=== PATIENT | female | born 1940 | race Caucasian/White ===

== ENCOUNTER 2017-04-18 18:05 | Observation (INO) | payer MEDICARE, OTHER ==
[2017-04-18 18:36] LABS: #Eosinphils 0.1 thou/uL (0.0-0.7); #Lymphocytes 2.1 thou/uL (1.20-3.40); #Monocytes 1.2 thou/uL (0.11-0.59); #Neutrophils 9.6 thou/uL (1.40-6.50); %Basophils 0.1 % (0.0-1.0); %Eosinophils 0.9 % (0.0-10.0); %Lymphocytes 16.2 % (21.0-51.0); %Monocytes 9.1 % (0.0-10.0); Mean Platelet Volume 9.5 fL (7.4-10.4); Red Blood Cell (RBC) Count 4.15 mill/uL (4.20-5.40); White Blood Cell (WBC) Count 13.1 thou/uL (4.8-10.8)
[2017-04-18 18:58] LABS: ALT (SGPT) 14 U/L (8-55); AST (SGOT) 9 U/L (5-34); Alkaline Phosphatase 56 U/L (40-150); Anion Gap 14 mmol/L (10-20); BUN (Urea Nitrogen) 25 mg/dL (9.8-20.1); Bilirubin, Total 0.5 mg/dL (0.2-1.2); Calc. Creatinine Clearance 0 mL/min (70-130); Calcium 9.5 mg/dL (7.8-10.44); Carbon Dioxide 29 mmol/L (23-31); Chloride 102 mmol/L (98-107); Estimated GFR-MDRD 67; Globulin 2.6 g/dL (2.4-3.5)
[2017-04-18 19:03] LABS: Troponin I 0.022 ng/mL (< 0.028)
[2017-04-18] MEDS ORDERED: Nitroglycerin 2% Ointment 1 INCH/1 GM Packet ONE (20:11)
[2017-04-18] MEDS ORDERED: hydrALAZINE 20 MG/ML VIAL ONE (22:28)
[2017-04-19] MEDS ORDERED: Ondansetron HCl/PF 4 MG/2 ML Vial IVP PRN
[2017-04-19] MEDS ORDERED: Ondansetron ODT 4 MG TAB SL PRN
[2017-04-19] MEDS ORDERED: Ondansetron ODT 4 MG TAB PO PRN (00:04)
[2017-04-19] MEDS ORDERED: HYDROcodone/Acetaminophen 10/325 mg Tablet PO PRN (00:04)
[2017-04-19] MEDS ORDERED: Acetaminophen 325 MG TAB PO PRN (00:04)
[2017-04-19] MEDS ORDERED: hydrALAZINE 20 MG/ML VIAL SLOW IVP PRN ×2 (00:04)
[2017-04-19] MEDS: HYDROcodone/Acetaminophen 5/325 mg Tablet PO PRN ×2 (01:04→08:00)
[2017-04-19] MEDS ORDERED: Carvedilol 6.25 MG TAB PO SCH ×2 (01:15→17:00)
[2017-04-19 01:36] VITALS: BMI 39.6
--- NOTE | 2017-04-19 01:53 | HP ---
DATE OF ADMISSION: 04/18/2017 CHIEF COMPLAINT: Elevated blood pressure. HISTORY OF PRESENT ILLNESS: Ms. Stevens is a 76-year-old white female with a history of hypertension , rheumatoid arthritis on methotrexate and recently on prednisone, obesity, DJD, remote atrial fibri llation, status post cardioversion and diabetes, who presented to the outside Emergency Department f or evaluation of an elevated blood pressure. She initially presented to [facility] after noting a systolic blood pressure today around 233. She pr esented to an outside facility for evaluation. There she was given hydralazine, which brought her b lood pressure down to systolic 140s. She has noted a history over the last several days of increasi ng blood pressures despite taking the regular home medications. She denies any chest pain or shortn ess of breath. She reported some diaphoresis, but she currently denies. No nausea, no vomiting. She has noted that her blood pressure started spiking around 2 days ago initially to a systolic pres sure of 203, increasing up to 233. She was given clonidine by primary care physician sometime ago w ith instructions to take 1-3 tablets 3 times a day as needed for elevated blood pressure. She has h ad 7 of those in the last 24 hours, yet blood pressure was still 233 today. When asked about recent blood pressure medication changes, she takes hydrochlorothiazide and amlodip ine. She was recently switched over to Coreg and losartan. She was on Lasix prior and was taken of f of that. She takes prednisone 5 mg a day which is not normal, she is usually off of that, just on her methotr exate for rheumatoid arthritis. The Physician Business Analyst Project Manager with her culinary arts teacher started her on that recently on cycling doses 5-10-15 back to 5 mg, which her daughter says completely not normal for h er culinary arts teacher. Blood pressure medicine changes occurred around 2 months ago and the recent pred nisone increased 1-2 weeks ago. She denies any current symptoms now. PAST MEDICAL HISTORY: 1. Hypertension. 2. Chronic back pain in the lower back. 3. Obesity. 4. Degenerative joint disease. 5. History of atrial fibrillation, status post cardioversion. 6. Diabetes mellitus type 2. 7. Rheumatoid arthritis. PAST SURGICAL HISTORY: Includes: 1. Lumbar back surgery in 2008. 2. Cholecystectomy, 1970. 3. Bilateral TKA in 2009 and 2010. 4. Cataracts bilaterally in 2014. 5. Discontinued cardioversion, 12/2016. HOME MEDICATIONS: 1. Coreg 12.5 mg p.o. b.i.d. 2. Prednisone 5 mg daily. 3. Clonidine 0.1 mg tablets 1-3 tablets t.i.d. p.r.n. elevated blood pressure. 4. Tylenol #3 p.r.n. 5. Eliquis 5 mg p.o. b.i.d. 6. Folic acid 1 mg daily. 7. Lasix. Currently, off. 8. Hydrocodone/APAP 7.5/325 as needed. 9. Losartan 50 mg daily. 10. Metformin 500 mg p.o. b.i.d. 11. Potassium chloride 10 mEq daily. 12. Pravastatin 40 mg p.o. at bedtime. 13. Methotrexate 17.5 mg p.o. q. weekly, she takes on Fridays. ALLERGIES: No known drug allergies. FAMILY HISTORY: Negative for clotting or bleeding disorder, no immune dysfunction. SOCIAL HISTORY: Negative habits x3. She drinks alcohol maybe one time a month, but really does not drink anything. REVIEW OF SYSTEMS: A 10-point review of systems was performed, negative for all other systems. Her daughter is at the bedside and helps her make her medical decisions. The patient does wish to b e a full code. PHYSICAL EXAMINATION: VITAL SIGNS: Temperature 98.1, pulse 60, blood pressure 195/78, respiratory rate 17, satting 96% on room air. GENERAL: She is awake. She is alert. She is oriented x3. She is an overweight, well-developed, w ell-nourished older female appears to be in no acute distress. HEENT: Normocephalic, atraumatic. Pupils equal, round and reactive bilaterally, mucous membranes m oist. There are no visible lesions. No thrush. NECK: Supple, without lymphadenopathy, JVD, or thyromegaly. Normal carotid upstrokes. She has no bruits. LUNGS: Clear. No wheezes, no rales, no rhonchi. No prolonged expiratory phase. She has good air movement. Symmetrical chest excursion. CARDIOVASCULAR: Normal S1, S2, no S3 or S4. No audible murmurs. ABDOMEN: Soft, it is nontender. She is obese. I cannot palpate internal organs. There is no rebo und, rigidity or guarding. EXTREMITIES: Show no cyanosis, no clubbing, no edema. SKIN: Warm, moist, and well perfused. She has no rashes and no lesions. MUSCULOSKELETAL: Exam is normal to inspection without any inflamed or painful joints. She has no i ncreased temperature and no palpable joint effusions. NEUROLOGIC: Cranial nerves II through XII are grossly intact. She has normal speech. She has 5/5 strength over all 4 extremities and no focal neurologic deficits. LABORATORY DATA: CMP is normal. Creatinine 0.83. Electrolytes normal. Liver functions are normal . White blood cell count was slightly elevated at 13.1, hemoglobin is 13.0, hematocrit of 41.0, platel ets 193,000 with a normal differential. Troponin I was 0.022 and MB fraction was 0.9. X-RAY FINDINGS: X-ray reportedly showed no acute cardiopulmonary disease. ASSESSMENT AND PLAN: 1. Hypertensive urgency: The patient supposedly had an elevated troponin in the outside facility, still well within normal range here and negative MB. I do not believe she has had any demand ischem ia. Her blood pressure remained elevated in the 190s. We will go ahead and give her night dose of Coreg and suspect she will respond better to diuretics and calcium channel blockers and she has to h er ARB and her Coreg. We will use hydralazine every 3 hours p.r.n. to keep her blood pressure below 180 tonight. In the meantime, we will follow her biomarkers, we will check her morning labs. 2. Diabetes mellitus type 2. Hold metformin for right now. I will use sliding scale insulin for c orrection, placed on a diabetic diet. 3. History of atrial fibrillation, status post cardioversion, currently in normal sinus rhythm. 4. Rheumatoid arthritis on methotrexate. We will continue. I suspect her prednisone may be contri buting to elevated blood pressure. We will hold her prednisone for the time being. Her daughter wi ll call the culinary arts teacher and can clear clarification of her dosing. 5. Obesity. 6. Chronic low back pain. We will continue home medications.
[2017-04-19 04:21] LABS: #Basophils 0.1 thou/uL (0.0-0.2); #Eosinphils 0.2 thou/uL (0.0-0.7); #Lymphocytes 2.8 thou/uL (1.20-3.40); #Monocytes 1.2 thou/uL (0.11-0.59); #Neutrophils 8.2 thou/uL (1.40-6.50); %Basophils 0.6 % (0.0-1.0); %Eosinophils 1.4 % (0.0-10.0); %Lymphocytes 22.6 % (21.0-51.0); %Monocytes 9.4 % (0.0-10.0); Hematocrit 36.9 % (36.0-47.0); Mean Platelet Volume 9.5 fL (7.4-10.4); Red Blood Cell (RBC) Count 3.77 mill/uL (4.20-5.40); White Blood Cell (WBC) Count 12.3 thou/uL (4.8-10.8)
[2017-04-19 04:29] LABS: Anion Gap 12 mmol/L (10-20); BUN (Urea Nitrogen) 32 mg/dL (9.8-20.1); Calc. Creatinine Clearance 85 mL/min (70-130); Calcium 9.1 mg/dL (7.8-10.44); Carbon Dioxide 27 mmol/L (23-31); Chloride 103 mmol/L (98-107); Estimated GFR-MDRD 56
[2017-04-19] MEDS ORDERED: Dextrose 50% Abboject 50 ML SYRINGE SLOW IVP PRN (04:37)
[2017-04-19] MEDS ORDERED: HumaLOG 300 UNITS/3 ML VIAL SC PRN (04:37)
[2017-04-19] MEDS ORDERED: Dextrose 5% in Water 1,000 ML IV PRN (04:37)
[2017-04-19] MEDS ORDERED: metFORMIN 500 MG TAB PO SCH (08:00)
[2017-04-19] MEDS ORDERED: cloNIDine 0.1 MG TAB PO SCH (09:00)
[2017-04-19] MEDS ORDERED: Enoxaparin Sodium 40 MG/0.4 ML SYRINGE SC SCH (09:00)
[2017-04-19] MEDS ORDERED: Apixaban 5 MG TAB PO SCH (09:00)
[2017-04-19] MEDS ORDERED: Famotidine 20 MG TAB PO SCH (09:00)
[2017-04-19] MEDS ORDERED: Losartan Potassium 25 MG TAB PO SCH (09:00)
--- NOTE | 2017-04-19 09:29 | PDOC.PN ---
- Subjective Encounter Start Date: 04/19/17 Encounter Start Time: 07:15 Subjective: has some slight headache with elevated BP -: no chest pain, cough or expectoration -: no sob or palp - Objective Resuscitation Status: Resuscitation Status FULL:Full Resuscitation MAR Reviewed: Yes Vital Signs & Weight: Vital Signs (12 hours) Temp Pulse Resp BP BP BP Pulse Ox 04/19/17 07:33 98.4 F 53 L 18 191/81 H 94 L 04/19/17 03:55 98.3 F 65 16 122/59 L 92 L 04/19/17 01:04 161/78 H Weight Weight 238 lb 1.6 oz I&O: 04/18/17 04/19/17 04/20/17 06:59 06:59 06:59 Intake Total 360 Balance 360 Result Diagrams: 04/19/17 04:05 04/19/17 04:05 Additional Labs: Accuchecks 04/19/17 05:25 POC Glucose 146 H Phys Exam - Physical Examination HEENT: PERRLA, moist MMs Neck: no JVD, supple Respiratory: no wheezing, no rales Cardiovascular: RRR, no significant murmur Gastrointestinal: soft, non-tender, positive bowel sounds Musculoskeletal: no edema, pulses present Neurological: non-focal, moves all 4 limbs Psychiatric: A&O x 3 Dx/Plan (1) Hypertensive urgency Code(s): I16.0 - HYPERTENSIVE URGENCY Status: Acute (2) Obesity (BMI 30-39.9) Code(s): E66.9 - OBESITY, UNSPECIFIED Status: Chronic (3) DM type 2 (diabetes mellitus, type 2) Status: Chronic Qualifiers: Diabetes mellitus complication status: with unspecified complications Diabetes mellitus rodent exterminator insulin use: without rodent exterminator use Qualified Code( s): E11.8 - Type 2 diabetes mellitus with unspecified complications (4) HTN (hypertension) Code(s): I10 - ESSENTIAL (PRIMARY) HYPERTENSION Status: Chronic Qualifiers: Hypertension type: essential hypertension Qualified Code(s): I10 - Essential (primary) hypertension (5) Rheumatoid arthritis Code(s): M06.9 - RHEUMATOID ARTHRITIS, UNSPECIFIED Status: Chronic Qualifiers: Rheumatoid arthritis location: multiple sites (6) Dyslipidemia Code(s): E78.5 - HYPERLIPIDEMIA, UNSPECIFIED Status: Chronic - Plan she stopped prednisone 2 days back for RA, was on 5mg -: am htn meds, check BP in 4 hrs around 2pm and if sbp ranges around -: -150-160 then may dc home -: add clonidine 0.1mg bid -: renal art indices to r/o stenosis, last stress was 1 yr back at 's * . Review of Systems - Medications/Allergies Allergies/Adverse Reactions: Allergies Allergy/AdvReac Type Severity Reaction Status Date / Time No Known Allergies Allergy Verified 04/19/17 00:50 Medications: Current Medications Acetaminophen (Tylenol) 650 mg PO Q4H PRN PRN Reason: Headache/Fever or Pain Hydrocodone Bitart/Acetaminophen ([place] 10/325) 1 tab PO Q4H PRN PRN Reason: Severe Pain (7-10) Hydrocodone Bitart/Acetaminophen ([place] 5/325) 1 tab PO Q4H PRN PRN Reason: Moderate Pain (4-6) Last Admin: 04/19/17 08:00 Dose: 1 tab Apixaban (Eliquis) 5 mg PO BID [facility] Last Admin: 04/19/17 08:00 Dose: 5 mg [facility] Clonidine HCl (Catapres) 0.1 mg PO BID [facility] Last Admin: 04/19/17 08:12 Dose: 0.1 mg Dextrose/Water (Dextrose 50%) 25 gm SLOW IVP PRN PRN PRN Reason: Hypoglycemia Famotidine (Pepcid) 20 mg PO BID [facility] Last Admin: 04/19/17 08:00 Dose: 20 mg Glucagon (Glucagon) 1 mg IM PRN PRN PRN Reason: Hypoglycemia Hydralazine HCl (Apresoline) 10 mg SLOW IVP Q3H PRN PRN Reason: SBP > 180 Dextrose/Water (D5w) 1,000 mls @ 0 mls/hr IV .Q0M PRN; As Directed PRN Reason: Hypoglycemia Insulin Human Lispro (Humalog) 0 units SC .MILD SLIDING SCALE PRN PRN Reason: Mild Correctional Scale Losartan Potassium (Cozaar) 50 mg PO DAILY [facility] Last Admin: 04/19/17 08:01 Dose: 50 mg Metformin HCl (Glucophage) [facility] Last Admin: 04/19/17 07:57 Dose: Not Given Ondansetron HCl (Zofran Odt) 4 mg PO Q6H PRN PRN Reason: Nausea/Vomiting Pravastatin Sodium (Pravachol) 40 mg PO HS [facility] Sodium Chloride (Flush - Normal Saline) 10 ml IVF Q12HR [facility] Last Admin: 04/19/17 08:12 Dose: 10 ml Sodium Chloride (Flush - Normal Saline) 10 ml IVF PRN PRN PRN Reason: Saline Flush Trazodone HCl (Desyrel) 50 mg PO HS [facility]
--- NOTE | 2017-04-19 10:49 | ULT ---
RENAL ULTRASOUND: CLINICAL HISTORY: Renal artery stenosis. TECHNIQUE: Carranza scale, Doppler, and color flow imaging and spectral analysis was performed. Renal Doppler evaluation performed. FINDINGS: There are normal renal artery to aorta ratios bilaterally, each of which measure approximately 0.6. Aortic velocity is measured at 98 cm/s, maximum right renal artery measurement at 62 cm/s and left renal artery measurement at 50 cm/s. Resistive indices bilaterally are 0.7. Renal lengths are symmetric, with small sized kidneys bilaterally measuring approximately 8-9 cm in length. There is no overt hydronephrosis. A focus of decreased echogenicity of the left renal pare nchyma approximating 2 cm in size is consistent with a cyst. The urinary bladder is decompressed li miting assessment. IMPRESSION: 1. No sonographic evidence to confirm renal artery stenosis. 2. Small kidneys bilaterally which may be on the basis of chronic medial renal disease. Correlate clinically. 3. Left renal cyst. 4. Decompressed urinary bladder which limits its assessment. POS: YAMILET
--- NOTE | 2017-04-19 10:50 | ULT ---
DUPLEX RENAL ARTERY EVALUATION: Please reference details regarding renal Doppler assessment on the concurrently dictated renal ultra sound report. POS: SYH
[2017-04-19 12:04] VITALS: TEMP 98.2
[2017-04-19] MEDS ORDERED: Hydrochlorothiazide 25 MG TAB PO SCH (12:15)
[2017-04-19 13:39] VITALS: BP 148/82
--- NOTE | 2017-04-19 17:36 | DIS ---
DATE OF ADMISSION: 04/19/2017 DATE OF DISCHARGE: 04/19/2017 DISCHARGE DISPOSITION: To home. PRIMARY DISCHARGE DIAGNOSES: Hypertensive urgency with headache, resolved. SECONDARY DISCHARGE DIAGNOSES: Diabetes mellitus type 2, hypertension, obesity , history of rheumatoid arthritis, dyslipidemia. PROCEDURES DONE DURING HOSPITALIZATION: The patient has had a renal ultrasound to rule out renal artery stenosis, which showed no evidence to confirm renal artery stenosis. She had small kidneys bilaterally. Discharge H\T\H 12 and 36 , platelet count 180. Discharge BUN and creatinine are 32 and 0.9. Troponin x2 is negative. DISCHARGE MEDICATIONS: Hydrochlorothiazide 25 mg p.o. daily, hydralazine 25 mg p.o. twice daily, metformin 1000 mg p.o. twice daily, trazodone 50 mg p.o. at bedtime, Pravachol 40 mg p.o. at bedtime, methotrexate 17.5 mg p.o. once weekly , Cozaar 50 mg p.o. daily, Coreg 12.5 mg p.o. twice daily, Eliquis 5 mg p.o. twice daily. ALLERGIES: No known drug allergies. DISCHARGE PLAN: The patient to follow up with primary care physician in 1 week. She has been advised to check her blood pressure and pulse twice daily and record on a sheet of paper to follow up with primary care physician. BRIEF COURSE DURING HOSPITALIZATION: The patient initially came to ER with elevated blood pressure. Her initial systolic blood pressures were 233 when she arrived at [place] [facility]. She was given multiple medications and was later transferred here for a higher level of care. The patient was placed on hydrochlorothiazide and hydralazine in addition to her home medications. She has been advised not to take clonidine as her heart rate trends in the 50s. She is already on Coreg 12.5 mg twice daily. She has been advised to check her blood pressures twice daily and record on a sheet of paper for any changes in her medications to follow up with her primary care physician. She is, otherwise , hemodynamically stable. Her headache has completely resolved and will be shortly discharged home now. Please see a [id number] documentation on [employer] [place] for the day of discharge. [facility]
[2017-04-19] MEDS ORDERED: traZODone HCl 50 MG TAB PO SCH (21:00)
[2017-04-19] MEDS ORDERED: Pravastatin Sodium 40 MG TAB PO SCH (21:00)
[2017-04-20] MEDS ORDERED: Hydrochlorothiazide 25 MG TAB PO SCH (09:00)
--- OUTSIDE RECORDS SUMMARY | 2017-04-22 11:12 | XMS | Clinical Summary ---
:1940 Author Organization [facility] Address [address] [place] [address] Phone Care Team Providers Name Role Phone , Primary Care Provider Unavailable Allergies Not on File Current Medications Not on file Active Problems Not on file Social History Tobacco Use Types Packs/Day Years Used Date Never Assessed Sex Assigned at Date Recorded Not on file Last Filed Vital Signs Not on file Plan of Treatment Not on file Results Not on filefrom Last 3 Months
== END 2017-04-19 14:09 | disposition home or self-care (01) ==
LOC: ERS 18:05 → 2SW 04-19
PROVIDERS: ADMIT Internal Medicine Addiction Medicine; ATTEND Internal Medicine Addiction Medicine
DX: I16.0 Hypertensive urgency (principal); E11.9 Type 2 diabetes mellitus without complications; E78.5 Hyperlipidemia, unspecified; I48.91 Unspecified atrial fibrillation; M06.9 Rheumatoid arthritis, unspecified; E66.9 Obesity, unspecified; Z68.39 Body mass index [BMI] 39.0-39.9, adult; Z79.01 Long term (current) use of anticoagulants; Z79.84 Long term (current) use of oral hypoglycemic drugs; Z79.899 Other long term (current) drug therapy; Z90.49 Acquired absence of other specified parts of digestive tract; Z98.42 Cataract extraction status, left eye; Z98.41 Cataract extraction status, right eye; Z98.890 Other specified postprocedural states
CPT/HCPCS: 76770; 80048; 80053; 82553; 82962; 84484 ×2; 85025; 93005; 93976; 96374; 99285; G0378; 36415; 36416; A4216; J0360

== ENCOUNTER 2024-05-25 11:30 | Inpatient (IN) | payer OTHER ==
[2024-05-31 12:37] VITALS: BMI 30.9
[2024-06-01] MEDS ORDERED: CEFAZOLIN 2 GM VIAL ONE (12:55)
[2024-06-01] MEDS ORDERED: Protamine Sulfate 50 MG/5 ML VIAL ONE (12:58)
[2024-06-01 13:28] LABS: #Basophils 0.06 10x3/uL (0.0-0.2); %Basophils 0.6 % (0.0-1.0); %Eosinophils 3.8 % (0.0-10.0); %Lymphocytes 43.4 % (21.0-51.0); %Monocytes 11.3 % (0.0-10.0); %Neutrophils 40.4 % (42.0-75.0); Hematocrit 39.1 % (36.0-47.0); Hemoglobin 13.3 g/dL (12.0-16.0); Mean Corpuscular Hemoglobin 31.2 pg (27.0-31.0); Mean Corpuscular Volume 91.8 fL (78.0-98.0); Platelet Count 223 10x3/uL (130-400); RBC Distribution Width 15.7 % (11.5-14.5); Red Blood Cell (RBC) Count 4.26 mill/uL (4.20-5.40)
[2024-06-01 13:46] LABS: INR-International Normal Ratio 1.2; PTT 32.2 sec (22.9-36.1); Prothrombin Time 14.9 sec (12.0-14.7)
[2024-06-01 13:47] LABS: Anion Gap 15 mmol/L (10-20); BUN (Urea Nitrogen) 17 mg/dL (9.8-20.1); Calc. Creatinine Clearance 77 mL/min (70-130); Calcium 9.6 mg/dL (7.8-10.44); Carbon Dioxide 25 mmol/L (23-31); Chloride 105 mmol/L (98-107); Estimated GFR 85; Glucose 111 mg/dL (83-110); Potassium 3.6 mmol/L (3.5-5.1); Sodium 141 mmol/L (136-145)
[2024-06-01] MEDS ORDERED: fentaNYL PF 100 MCG/2 ML SYRINGE ONE (14:07)
[2024-06-01] MEDS ORDERED: SUGAMMADEX SODIUM 200 MG/2 ML VIAL ONE ×2 (14:08→16:22)
[2024-06-01 15:05] LABS: ALT (SGPT) 13 U/L (8-55); AST (SGOT) 20 U/L (5-34); Albumin 3.7 g/dL (3.4-4.8); Alkaline Phosphatase 51 U/L (40-110); Bilirubin, Direct 0.2 mg/dL (0.1-0.3); Bilirubin, Total 0.4 mg/dL (0.2-1.2); Protein, Total 7.5 g/dL (5.8-8.1)
[2024-06-01] MEDS ORDERED: traMADol HCl 50 MG TAB PO PRN ×2 (18:34)
[2024-06-01] MEDS ORDERED: Ondansetron PF 4 MG/2 ML Vial IVP PRN (18:34)
[2024-06-01] MEDS ORDERED: Ondansetron ODT 4 MG TAB PO PRN (18:34)
[2024-06-01] MEDS ORDERED: Calcium Carbonate 500 MG ChewTAB PO PRN (18:34)
[2024-06-01] MEDS ORDERED: Benzocaine/Menthol 1 LOZ LOZ PO PRN (18:34)
[2024-06-01] MEDS: Famotidine 20 MG TAB PO SCH (20:22)
[2024-06-01] MEDS: Clopidogrel Bisulfate 75 MG TAB PO SCH (20:23)
[2024-06-01] MEDS: Aspirin 81 mg Enteric Coated Tablet PO SCH (20:23)
[2024-06-01] MEDS: traZODone HCl 50 MG TAB PO SCH (20:23)
[2024-06-01] MEDS: Rosuvastatin 5 MG TAB PO SCH (20:23)
[2024-06-01] MEDS: hydrALAZINE 25 MG TAB PO SCH (20:23)
[2024-06-02 04:40] LABS: #Basophils 0.05 10x3/uL (0.0-0.2); %Basophils 0.5 % (0.0-1.0); %Eosinophils 2.9 % (0.0-10.0); %Lymphocytes 29.7 % (21.0-51.0); %Monocytes 13.2 % (0.0-10.0); %Neutrophils 53.2 % (42.0-75.0); Hematocrit 34.4 % (36.0-47.0); Hemoglobin 11.6 g/dL (12.0-16.0); Mean Corpuscular HGB CONC 33.7 g/dL (32.0-36.0); Mean Corpuscular Hemoglobin 31.4 pg (27.0-31.0); Mean Platelet Volume 12.5 fL (7.4-10.4); Platelet Count 188 10x3/uL (130-400); RBC Distribution Width 15.5 % (11.5-14.5)
[2024-06-02 05:33] LABS: Anion Gap 16 mmol/L (10-20); BUN (Urea Nitrogen) 15 mg/dL (9.8-20.1); Calc. Creatinine Clearance 80 mL/min (70-130); Calcium 8.3 mg/dL (7.8-10.44); Carbon Dioxide 23 mmol/L (23-31); Chloride 107 mmol/L (98-107); Estimated GFR 87; Glucose 76 mg/dL (83-110); Potassium 3.5 mmol/L (3.5-5.1); Sodium 142 mmol/L (136-145)
[2024-06-02] MEDS: hydrALAZINE 25 MG TAB PO SCH (09:50)
[2024-06-02] MEDS: Losartan 25 MG TAB PO SCH (09:51)
[2024-06-02] MEDS: Folic Acid 1 MG TAB PO SCH (09:51)
[2024-06-02] MEDS: NIFEdipine XL 30 MG ER.TAB PO SCH (09:51)
[2024-06-02] MEDS: Clopidogrel Bisulfate 75 MG TAB PO SCH (09:51)
[2024-06-02] MEDS: Acetaminophen 500 MG TAB PO PRN (09:51)
[2024-06-02] MEDS: Aspirin 81 mg Enteric Coated Tablet PO SCH (09:51)
[2024-06-02 15:14] VITALS: BP 126/59; TEMP 97.8
== END 2024-06-02 17:26 | disposition home or self-care (01) | DRG 274 ==
LOC: SURG A 06-01 10:42 → EDSTATUS 06-01 11:30 → 2NO 06-01 19:08
PROVIDERS: ADMIT Internal Medicine Cardiovascular Disease; ATTEND Internal Medicine Cardiovascular Disease
PROC: 02L73DK Occlusion of Left Atrial Appendage with Intraluminal Device, Percutaneous Approach (ICD-10-PCS; principal; 2024-06-01)
PROC: B24BZZ4 Ultrasonography of Heart with Aorta, Transesophageal (ICD-10-PCS; 2024-06-01)
DX: I48.11 Longstanding persistent atrial fibrillation (principal); Z00.6 Encounter for examination for normal comparison and control in clinical research program; M06.9 Rheumatoid arthritis, unspecified; I10 Essential (primary) hypertension; H54.8 Legal blindness, as defined in USA; Z96.653 Presence of artificial knee joint, bilateral; E66.9 Obesity, unspecified; G89.29 Other chronic pain; M54.9 Dorsalgia, unspecified; Z79.01 Long term (current) use of anticoagulants; Z79.899 Other long term (current) drug therapy; Z90.49 Acquired absence of other specified parts of digestive tract; Z68.31 Body mass index [BMI] 31.0-31.9, adult
CPT/HCPCS: 33340; 36415; 80048; 80076; 85025; 85347; 85610; 85730; 86850; 86900; 86901; 93005; 93010; 93306; 93355; C1759; C1760; C1817; C1894; J2720

== ENCOUNTER 2024-07-27 07:00 | Day surgery (SDC) | payer OTHER ==
[2024-07-26 14:45] VITALS: BMI 29.8
[2024-07-27 07:54] LABS: #Basophils 0.06 10x3/uL (0.0-0.2); %Basophils 0.6 % (0.0-1.0); %Eosinophils 4.4 % (0.0-10.0); %Lymphocytes 39.5 % (21.0-51.0); %Monocytes 12.3 % (0.0-10.0); Hematocrit 39.2 % (36.0-47.0); Mean Corpuscular HGB CONC 33.2 g/dL (32.0-36.0); Mean Corpuscular Volume 93.3 fL (78.0-98.0); Mean Platelet Volume 12.6 fL (7.4-10.4); Platelet Count 205 10x3/uL (130-400); RBC Distribution Width 16.8 % (11.5-14.5)
[2024-07-27 08:17] LABS: Anion Gap 16 mmol/L (10-20); BUN (Urea Nitrogen) 22 mg/dL (9.8-20.1); Calc. Creatinine Clearance 74 mL/min (70-130); Calcium 9.3 mg/dL (7.8-10.44); Carbon Dioxide 23 mmol/L (23-31); Chloride 105 mmol/L (98-107); Estimated GFR 76; Glucose 125 mg/dL (83-110); Potassium 3.4 mmol/L (3.5-5.1); Sodium 141 mmol/L (136-145)
[2024-07-27 08:25] LABS: PTT 26.9 sec (22.9-36.1)
[2024-07-27 08:27] LABS: INR-International Normal Ratio 1.1; Prothrombin Time 14.1 sec (12.0-14.7)
[2024-07-27] MEDS ORDERED: PROPOFOL 20 ML ONE (09:15)
== END 2024-07-27 10:58 | disposition home or self-care (01) ==
LOC: SDC 07:00
PROVIDERS: ATTEND Internal Medicine Cardiovascular Disease
PROC: B246ZZ4 Ultrasonography of Right and Left Heart, Transesophageal (ICD-10-PCS; principal; 2024-07-27)
DX: I48.11 Longstanding persistent atrial fibrillation (principal); R29.6 Repeated falls; Z79.01 Long term (current) use of anticoagulants; Z98.890 Other specified postprocedural states; Z95.810 Presence of automatic (implantable) cardiac defibrillator
CPT/HCPCS: 80048; 85025; 85610; 85730; 93312; J2704; 36415